=== PATIENT | male | born 1990 | race Caucasian/White ===

== ENCOUNTER 2019-01-27 18:39 | Emergency (ER) | payer OTHER, SELFPAY ==
[2019-01-27 18:41] VITALS: BP 144/99; PULSE 62; RESP 18; TEMP 36.7; O2SAT 99; BMI 24.9
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
[2019-01-27] MEDS: Diphth,Pertuss(Acell),Tet Vac 0.5 ML Vial IM (20:04)
[2019-01-27] MEDS: Acetaminophen 500 MG Tablet 1000 MG PO (20:04)
[2019-01-27 20:51] VITALS: BP 139/79; PULSE 76; RESP 16; O2SAT 100
--- NOTE | 2019-01-27 20:52 | ED.RN ---
CLEANED 7 ABRASIONS ON RIGHT HAND WITH SHUR CLEANSE AND STERILE WATER, APPLIED BACITRACIN OINTMENT PER MD AND BANDAGES WITH BAND-AIDES, TELFA, AND GAUZE CLING. CLEANED 3 LARGE ABRASIONS ON LEFT SHOULDER BLADE WITH SHUR CLEANSE, AND STERILE WATER APPLIED BACITRACIN,TELFA, AND STERILE CLING WRAP PER MD. CLEANSED TWO ABRASIONS ON LEFT ELBOW WITH SHUR-CLEANSE AND STERILE WATER, TELFA, AND WILLOW CLING. RIGHT ANKLE ABRASION TX THE SAME.
[2019-01-27 21:11] VITALS: BP 137/77; PULSE 76; RESP 17; O2SAT 100
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
== END 2019-01-27 21:35 | disposition home or self-care (01) ==
PROVIDERS: Emergency Provider Emergency Medicine; Family Provider Family Medicine; PCP Family Medicine
DX: S42.022A Displaced fracture of shaft of left clavicle, initial encounter for closed fracture (principal); S42.035A Nondisplaced fracture of lateral end of left clavicle, initial encounter for closed fracture; S52.025A Nondisplaced fracture of olecranon process without intraarticular extension of left ulna, initial encounter for closed fracture; S40.212A Abrasion of left shoulder, initial encounter; S50.312A Abrasion of left elbow, initial encounter; S60.512A Abrasion of left hand, initial encounter; Z23 Encounter for immunization; I10 Essential (primary) hypertension; Z79.899 Other long term (current) drug therapy; V18.0XXA Pedal cycle driver injured in noncollision transport accident in nontraffic accident, initial encounter; Y93.55 Activity, bike riding; Y92.89 Other specified places as the place of occurrence of the external cause; Y99.8 Other external cause status
CPT/HCPCS: 29405; 73030; 73080; 90715; 99283

== ENCOUNTER 2019-06-18 13:30 | Outpatient (RCR) | payer OTHER, SELFPAY ==
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
== END 2019-06-18 19:00 | disposition home or self-care (01) ==
LOC: PT 13:30
PROVIDERS: Family Provider Family Medicine; PCP Family Medicine
DX: S42.032D Displaced fracture of lateral end of left clavicle, subsequent encounter for fracture with routine healing (principal); S52.022D Displaced fracture of olecranon process without intraarticular extension of left ulna, subsequent encounter for closed fracture with routine healing
CPT/HCPCS: 97110; 97161